=== PATIENT | male | born 1965 | race Caucasian/White ===

== ENCOUNTER 2019-07-19 04:58 | Inpatient (IN) | payer BC ==
[~2019-07-19] VITALS: Ht 165.1 cm; Wt 69.4 kg
[2019-07-19] MEDS ORDERED: ONDANSETRON HCL INJ 2MG/ML 2ML 2 MG/ML VIAL IV STA (05:00)
[2019-07-19] MEDS ORDERED: ASPIRIN 81 MG CHEW TAB PO STA (05:00)
[2019-07-19] MEDS ORDERED: MORPHINE SULFATE INJ 4 MG/ML INJ 1ML IV STA (05:00)
[2019-07-19 05:18] LABS: BASOPHILS # (AUTO) 0.1 (0.0-0.1); BASOPHILS % 1.2 % (0.0-1.0); EOSINOPHILS # (AUTO) 0.4 (0.0-0.4); EOSINOPHILS % 4.5 % (0.0-6.0); HEMATOCRIT 45.6 % (38.2-49.6); HEMOGLOBIN 15.8 g/dL (14.0-18.0); LYMPHOCYTES # (AUTO) 2.1 (1.0-3.2); LYMPHOCYTES % 22.8 % (18.0-39.1); MEAN CORPUSCULAR HGB CONC 34.6 g/dL (31-35); MEAN CORPUSCULAR VOLUME 92.3 fL (81-99); MONOCYTES # (AUTO) 1.2 (0.2-0.8); MONOCYTES % 12.8 % (4.4-11.3); NEUTROPHILS # (AUTO) 5.3 (2.1-6.9); NEUTROPHILS % 58.5 % (38.7-80.0); PLATELET COUNT 326 x10e3/uL (140-360); RED BLOOD COUNT 4.94 x10e6/uL (4.3-5.7); RED CELL DISTRIBUTION WIDTH 13.5 % (11.7-14.4)
[2019-07-19] MEDS ORDERED: ASPIRIN81 MG PO (05:37)
[2019-07-19] MEDS ORDERED: ATORVASTATIN CA80 MG PO (05:37)
[2019-07-19] MEDS ORDERED: ALPRAZOLAM1 MG PO (05:37)
[2019-07-19] MEDS ORDERED: ALBUTEROL0.63 MG/3 INH (05:37)
[2019-07-19] MEDS ORDERED: Metoprolol PO (05:37)
[2019-07-19] MEDS ORDERED: LISINOPRIL2.5 MG PO (05:37)
[2019-07-19 05:39] LABS: ALANINE AMINOTRANSFERASE 33 IU/L (0-55); ALBUMIN 3.9 g/dL (3.5-5.0); ALBUMIN/GLOBULIN RATIO 1.6 (0.8-2.0); ALKALINE PHOSPHATASE 53 IU/L (40-150); ANION GAP 16.1 mmol/L (8-16); BLOOD UREA NITROGEN 11 mg/dL (7-26); BUN/CREATININE RATIO 10 (6-25); CALCIUM 8.5 mg/dL (8.4-10.2); CARBON DIOXIDE 22 mmol/L (22-29); CHLORIDE 109 mmol/L (98-107); CREATINE KINASE 314 IU/L (30-200); CREATININE, SERUM 1.12 mg/dL (0.72-1.25); EST GLOMERULAR FILTRATION RATE > 60 ML/MIN (60-); GLUCOSE 143 mg/dL (74-118); POTASSIUM 4.1 mmol/L (3.5-5.1); SODIUM 143 mmol/L (136-145)
[2019-07-19] MEDS ORDERED: ASPIRIN 81 MG CHEW TAB PO ONE (06:00)
--- NOTE | 2019-07-19 09:07 | NUR ---
having echocardiogram performed at this time
[2019-07-19 09:31] VITALS: BP 133/79
--- NOTE | 2019-07-19 10:00 | NUR ---
Patient here from ER. Patient c/o chest pain 09/14, patient placed on 02 2l NC, glasses on, shelter monitor in place, iv to right ac 20g saline locked. Bed is low and locked, side rails upx2, call light within reach.
[2019-07-19 10:03] VITALS: BP 133/79
--- NOTE | 2019-07-19 10:11 | Diagnostic Imaging Report ---
EXAMINATION: CHEST SINGLE (PORTABLE) INDICATION: Chest pain, shortness of breath COMPARISON: None FINDINGS: LINES/TUBES:EKG leads overlie the chest. LUNGS:The lungs are well-inflated. No focal consolidation or pulmonary edema. PLEURA:No pleural effusion or pneumothorax. MEDIASTINUM:The cardiomediastinal silhouette appears normal in size and shape. BONES/SOFT TISSUES:No acute osseous injury. ABDOMEN:No free air under the diaphragm. IMPRESSION: No focal pneumonia or pulmonary edema. Signed by: Derian Barnhart MD on 07/19/2019 10:08 AM
[2019-07-19] MEDS: MORPHINE SULFATE 2 MG/ML SYR 1ML IV PRN ×2 (10:48→19:33)
[2019-07-19] MEDS: ONDANSETRON HCL INJ 2MG/ML 2ML 2 MG/ML VIAL IV PRN ×2 (10:48→19:33)
[2019-07-19 11:32] VITALS: BP 128/77
[2019-07-19 13:32] LABS: CREATINE KINASE MB 10.8 ng/mL (0-5.0)
--- NOTE | 2019-07-19 14:32 | NUR ---
PAGED DR. ROBERTSON TO NOTIFY OF CARDIAC ENZYME RESULTS. AWAITING CALL BACK.
[2019-07-19] MEDS: NICOTINE 21 MG/EA PATCH TOP SCH (15:03)
[2019-07-19 16:30] VITALS: BP 122/80
--- NOTE | 2019-07-19 17:51 | Consultation ---
DATE OF CONSULTATION: Cardiology Consultation REASON FOR CONSULTATION: Chest pain. HISTORY OF PRESENT ILLNESS: This is a 53-year-old man with a history of prior drug abuse back in 2012, which led to a myocardial infarction due to cocaine overdose, hypertension, hyperlipidemia, who presented to emergency department with two days of worsening chest pain. The patient's pain is intermittent, centrally located without radiation, mild to moderate intensity, mildly relieved with morphine and aspirin, associated with nausea and vomiting. No diaphoresis. No shortness of breath. REVIEW OF SYSTEMS: A 12-point review of system was conducted, is negative as stated above in the HPI. PAST MEDICAL HISTORY: As stated above in the HPI. PAST SURGICAL HISTORY: None recent. PAST FAMILY HISTORY: Noncontributory to current illness. ALLERGIES: NO KNOWN DRUG ALLERGIES. SOCIAL HISTORY: No illicit drug, alcohol or tobacco use. MEDICATIONS: See medication reconciliation form. PHYSICAL EXAMINATION: VITAL SIGNS: Temperature is 97, heart rate is 56, respirations are 18, blood pressure is 128/77, ox saturation 98% on room air. GENERAL: Well appearing, well built, no apparent distress. Alert and oriented x3. HEAD: Normocephalic and atraumatic. EYES: Extraocular muscles are intact. Conjunctivae clear. NECK: No JVD. No bruits. CARDIOVASCULAR: Regular rate and rhythm. LUNGS: Clear to auscultation. ABDOMEN: Soft, nontender, nondistended. EXTREMITIES: No clubbing, cyanosis or edema. VASCULAR: 2+ pulses. SKIN: Warm, dry and intact. NEUROLOGIC: No focal deficits noted. Cranial nerves grossly intact. PSYCHIATRIC: Normal mood and affect. LABORATORY DATA: All laboratory data reviewed. Troponins are within normal limits. BNP is 39. CK is mildly elevated at 314. Chest x-ray shows no acute cardiopulmonary abnormality. A 12-lead electrocardiogram showed normal sinus rhythm with lateral ischemia. 2D echocardiogram showed preserved left ventricular systolic function. IMPRESSION: 1. Precordial pain. 2. Abnormal electrocardiogram. 3. History of myocardial infarction. 4. Hypertension. 5. Hyperlipidemia. RECOMMENDATIONS: Trend the troponins. If rules in, he will need coronary angiogram. If troponins remain normal, he will need a nuclear stress test tomorrow morning. Continue current cardiovascular medications and hyperlipidemia treatment. DO JENN Bland/MAYL /[id number]
[2019-07-19 20:00] VITALS: BP 152/90
[2019-07-19] MEDS ORDERED: TEMAZEPAM 7.5 MG CAP PO SCH (21:00)
[2019-07-19] MEDS: TEMAZEPAM 15 MG CAP PO SCH (21:00)
[2019-07-19 21:20] LABS: CREATINE KINASE MB 11.3 ng/mL (0-5.0)
[2019-07-20] VITALS (10 sets, daily range): BP systolic 115–148; BP diastolic 66–94
[2019-07-20 05:29] LABS: BASOPHILS # (AUTO) 0.1 (0.0-0.1); BASOPHILS % 0.7 % (0.0-1.0); EOSINOPHILS # (AUTO) 0.6 (0.0-0.4); EOSINOPHILS % 5.3 % (0.0-6.0); HEMOGLOBIN 14.9 g/dL (14.0-18.0); LYMPHOCYTES # (AUTO) 3.3 (1.0-3.2); LYMPHOCYTES % 30.5 % (18.0-39.1); MEAN CORPUSCULAR HEMOGLOBIN 31.6 pg (28-32); MEAN CORPUSCULAR HGB CONC 33.1 g/dL (31-35); MEAN CORPUSCULAR VOLUME 95.3 fL (81-99); MONOCYTES % 8.9 % (4.4-11.3); NEUTROPHILS # (AUTO) 5.9 (2.1-6.9); NEUTROPHILS % 54.2 % (38.7-80.0); PLATELET COUNT 286 x10e3/uL (140-360); RED BLOOD COUNT 4.72 x10e6/uL (4.3-5.7); RED CELL DISTRIBUTION WIDTH 13.7 % (11.7-14.4)
[2019-07-20 05:48] LABS: ANION GAP 7.1 mmol/L (8-16); BLOOD UREA NITROGEN 8 mg/dL (7-26); BUN/CREATININE RATIO 9 (6-25); CALCIUM 7.9 mg/dL (8.4-10.2); CARBON DIOXIDE 28 mmol/L (22-29); CHLORIDE 108 mmol/L (98-107); CREATININE, SERUM 0.89 mg/dL (0.72-1.25); EST GLOMERULAR FILTRATION RATE > 60 ML/MIN (60-); GLUCOSE 106 mg/dL (74-118); POTASSIUM 4.1 mmol/L (3.5-5.1); SODIUM 139 mmol/L (136-145)
[2019-07-20 06:04] LABS: CHOL/HDL RATIO 2.9 (3.9-4.7)
[2019-07-20 06:23] LABS: THYROID STIMULATING HORMONE 1.658 uIU/mL (0.350-4.940)
[2019-07-20] MEDS: NICOTINE 21 MG/EA PATCH TOP SCH (08:54)
[2019-07-20] MEDS ORDERED: REGADENOSON 0.4 MG/5 ML SYR IV ONE (09:57)
--- NOTE | 2019-07-20 10:35 | NUR ---
Pt unavailable at this time. Will follow up as able. STONEY FERNANDO Life Manager Spiritual Care Department O: [phone]
[2019-07-20] MEDS: MORPHINE SULFATE 2 MG/ML SYR 1ML IV PRN ×3 (10:40→21:59)
--- NOTE | 2019-07-20 10:40 | NUR ---
MD CALLED TO REQUEST MORPHINE 4 MG GIVE IN STRESS LAB, PATIENT WITH CRUSHING CHEST PAIN 10/, SAME GIVEN, PATIENT THEN RUSHED TO WASTEWATER SUPERVISOR
[2019-07-20] MEDS ORDERED: MIDAZOLAM HCL 2 MG/2 ML VIAL ONE ×2 (10:42→11:10)
[2019-07-20] MEDS ORDERED: HEPARIN SOD (PORCINE) 1000 UNIT/ML 30ML ONE (10:42)
[2019-07-20] MEDS ORDERED: FENTANYL CITRATE/PF 100MCG/2 ML INJ ONE (10:43)
[2019-07-20] MEDS ORDERED: LIDOCAINE HCL 2% LOCAL 20 ML VIAL ONE (10:44)
[2019-07-20] MEDS ORDERED: NITROGLYCERIN/D5W 200 MCG/ML 250 ML ONE (10:45)
[2019-07-20] MEDS ORDERED: SODIUM CHLORIDE 0.9% 1000ML 1,000 ML ONE (10:45)
[2019-07-20] MEDS ORDERED: HEPARIN SOD/SOD CHLORIDE 2,000 ML ONE (10:45)
[2019-07-20] MEDS ORDERED: IOPAMIDOL 370 MG/ML 200 ML INFUS..BTL INJ ONE (10:45)
[2019-07-20] MEDS ORDERED: ASPIRIN 325 MG TAB ONE (11:15)
[2019-07-20] MEDS ORDERED: TICAGRELOR 90 MG TABLET ONE (11:15)
--- NOTE | 2019-07-20 15:25 | Progress Note ---
DATE: Cardiology Progress Note SUBJECTIVE: The patient reported severe chest pain and diaphoresis during his stress test this morning. He then underwent a percutaneous coronary intervention of the right coronary artery, currently feeling well. Denies any chest pain or shortness of breath is ongoing. OBJECTIVE: VITAL SIGNS: Temperature 97.9, heart rate 71, respirations 16, blood pressure is 134/94, and oxygen saturation is 99% on room air. GENERAL: Well appearing, no apparent distress. Alert and orient x3. HEAD: Normocephalic, atraumatic. CARDIOVASCULAR: Regular rate and rhythm. LUNGS: Clear to auscultation. ABDOMEN: Soft, nontender, nondistended. EXTREMITIES: No edema. LABORATORY DATA: Reviewed. Telemetry monitoring revealed no cardiac arrhythmias. IMPRESSION: 1. Yod-CA-refplmlci myocardial infarction. 2. Precordial pain. 3. Abnormal electrocardiogram. 4. Hypertension. 5. Hyperlipidemia. 6. Coronary artery disease. RECOMMENDATIONS: He is currently now status post percutaneous coronary intervention of the right coronary artery. Continue dual antiplatelet therapy and high-dose statins. His echocardiogram showed preserved left ventricular systolic function. Monitor overnight. The patient will be discharged in the morning. Sterling Delgado DO BM/MODL /[id number]
--- NOTE | 2019-07-20 15:40 | Operative Report ---
DATE OF PROCEDURE: 07/20/2019 SURGEON: Sterling Delgado DO PROCEDURES PERFORMED: 1. Conscious sedation, 45 minutes. 2. Selective coronary angiography x2. 3. Left heart catheterization. 4. Percutaneous coronary intervention of the right coronary artery. PREPROCEDURE DIAGNOSIS: [id number]-ugnfmrhdf myocardial infarction. POSTPROCEDURE DIAGNOSIS: Coronary artery disease. ESTIMATED BLOOD LOSS: Less than 20 mL. SPECIMENS REMOVED: None. PROCEDURE IN DETAIL: After informed consent was obtained, the patient is brought to the cardiac catheterization laboratory in a fasting and nonsedated state. Bilateral groins were prepped and draped in the usual sterile fashion. A 2% lidocaine was obtained over the right anterior groin for local anesthesia. The patient received fentanyl and midazolam. His conscious state and his physiologic status were monitored by myself and laborer fryer farm nurse for 45 minutes. Using micropuncture needle, the right common femoral artery was accessed via modified Seldinger technique and a 6-Telugu sheath was placed. Next, diagnostic coronary angiography was performed and 80% to 90% RCA stenosis was found. The patient received systemic heparin for therapeutic anticoagulation. Right coronary artery is cannulated with a JR4 guide. It is crossed with a Runthrough wire. It is pre-dilated with a 2.5 x 12 balloon. The lesion was stented with a 2.75 x 24 Synergy drug-eluting stent with excellent results. The patient tolerated the procedure well, no immediate complications and transferred back to his room in stable condition. Hemostasis was achieved via Mynx device. PROCEDURE FINDINGS: 1. Left main coronary artery is patent without significant disease. 2. Left anterior descending coronary artery is patent with luminal irregularities. 3. Left circumflex coronary artery is a small vessel provides one obtuse marginal vessel. 4. The right coronary artery is a large dominant vessel and provides a large posterolateral branch and the PDA. There is a distal hazy 80% to 90% stenosis. 5. Left ventricular end-diastolic pressure is 22 mmHg with no aortic valve gradient present upon pullback. IMPRESSION: Coronary artery disease. RECOMMENDATIONS: Continue aggressive medical therapy and dual antiplatelet. Sterling Delgado DO BM/MODL /[id number]
[2019-07-20] MEDS: TICAGRELOR 90 MG TABLET PO SCH (17:11)
[2019-07-20] MEDS: METOPROLOL TARTRATE 25 MG TAB PO SCH (17:12)
--- NOTE | 2019-07-20 19:10 | NUR ---
RECEIVED REPORT FROM PREVIOUS NURSE. CALL LIGHT WITHIN REACH. PATIENT IN BED.
[2019-07-20] MEDS ORDERED: ATORVASTATIN 20 MG TAB PO SCH (21:00)
[2019-07-20] MEDS: TEMAZEPAM 15 MG CAP PO SCH (21:39)
[2019-07-20] MEDS: ONDANSETRON HCL INJ 2MG/ML 2ML 2 MG/ML VIAL IV PRN (21:59)
[2019-07-21 00:49] VITALS: BP 121/66
[2019-07-21 04:24] VITALS: BP 112/61
--- NOTE | 2019-07-21 07:10 | NUR ---
GAVE BEDSIDE SHIFT REPORT TO ONCOMING NURSE. CALL LIGHT WITHIN REACH. PATIENT IN BED.
[2019-07-21 07:25] VITALS: BP 128/72
[2019-07-21] MEDS: NICOTINE 21 MG/EA PATCH TOP SCH (09:00)
[2019-07-21] MEDS: TICAGRELOR 90 MG TABLET PO SCH (09:00)
[2019-07-21] MEDS: METOPROLOL TARTRATE 25 MG TAB PO SCH (09:00)
[2019-07-21] MEDS ORDERED: ASPIRIN 81 MG CHEW TAB PO SCH (09:00)
[2019-07-21 09:45] VITALS: BP 128/72
[2019-07-21 11:33] VITALS: BP 126/88
[2019-07-21] MEDS ORDERED: ONDANSETRON HCL 4 MG ORAL DISINTEGRATING TAB PO PRN (11:45)
[2019-07-21] MEDS ORDERED: METOPROLOL SUCC25 MG PO (14:58)
[2019-07-21] MEDS ORDERED: LIPITOR20 MG PO (14:58)
[2019-07-21] MEDS ORDERED: BRILINTA90 MG PEG (15:00)
[2019-07-21 15:19] VITALS: BP 141/88
--- NOTE | 2019-07-21 16:12 | NUR ---
SPOKE WITH MD ROBERTSON, OKAY TO DC FROM HIS STANDPOINT, DISCHARGE INSTRUCTIONS REVIEWED WITH PT, VERBALIZED UNDERSTANDING, WHEELED OFF UNIT VIA WC FOR DISCHARGE, NO CHANGE IN CONDITION
--- NOTE | 2019-07-26 12:22 | Discharge Summary ---
FINAL DIAGNOSIS: Dfc-WX-wtddlyyex myocardial infarction. SECONDARY DIAGNOSES: 1. Hypertension. 2. Dyslipidemia. 3. Tobacco abuse. CONSULTANTS: Dr. Delgado, Cardiology. PROCEDURES/STUDIES PERFORMED: 1. Echocardiogram, which was unremarkable. 2. Left heart catheterization with stent placement to RCA. HISTORY: Per H and P. HOSPITAL COURSE: The patient was admitted. The patient's troponin went up. He does have [id number] NH. The patient underwent cardiac cath with stent placed in the right coronary artery. The patient understand that it is very important for him to continue take his aspirin and Brilinta as prescribed. The patient will continue to work on stopping smoking. The patient was seen and examined today. It took 32 minutes total to discharge this patient. CONDITION ON DISCHARGE: Stable. DISCHARGE MEDICATIONS: Please see medication reconciliation form. MD TATIANA Mead/ADIA /[id number]
--- NOTE | 2019-07-28 17:32 | Myoview Stress Test ---
DATE OF STUDY: 07/19/2019 12:57:00 Stress Test - Treadmill ONLY STUDY PERFORMED: Nuclear stress report. PROCEDURE TITLE: Rest single isotope SPECT imaging with pharmacologic stress. INDICATION: Chest pain. PROCEDURE IN DETAIL: Pharmacologic stress testing was performed with regadenoson per protocol. The heart rate was 69 beats per minute at rest and increased to 103 beats per minute during the regadenoson infusion. The resting blood pressure was 138/79 mmHg and decreased to 130/79 mmHg, which is a normal response. The resting electrocardiogram demonstrated normal sinus rhythm. There were no ST T-wave changes suggestive of myocardial ischemia. The patient became symptomatic with 9/10 chest pain associated with diaphoresis during stress. Blood pressure increased to 198/101 while patient was having chest pain. The patient was given 0.4 mg of sublingual nitroglycerin and 4 mg of morphine and was emergently taken to the cardiac catheterization laboratory. Myocardial perfusion imaging was performed at rest following the injection of 11 millicurie of tetrofosmin. At peak pharmacologic effect, the patient was injected with 32.2 millicurie of tetrofosmin. Stress images were not obtained as the patient was taken to the cardiac catheterization laboratory due to chest pain prior to completion of procedure. FINDINGS: The overall quality of study is fair. Left ventricular cavity is noted to be normal size on the rest study. SPECT images demonstrate a small moderate inferior perfusion defect in the inferior wall. In addition, there is a small moderately severe perfusion defect in the distal anterolateral wall. CONCLUSIONS: Myocardial perfusion imaging is abnormal at rest. No stress images were obtained. Gated SPECT imaging was not performed. Georgiana Mosqueda MD ABS/MODL /[id number] DAVID
== END 2019-07-21 16:13 | disposition home or self-care (01) | DRG 247 ==
LOC: ER 04:58 → ERHOLD 06:14 → MED/SURG 09:49 → OBSVTOIN 07-20 13:02
PROVIDERS: ADMIT Internal Medicine; ATTEND Internal Medicine
PROC: 027034Z Dilation of Coronary Artery, One Artery with Drug-eluting Intraluminal Device, Percutaneous Approach (ICD-10-PCS; principal; 2019-07-20)
PROC: 4A023N7 Measurement of Cardiac Sampling and Pressure, Left Heart, Percutaneous Approach (ICD-10-PCS; 2019-07-20)
PROC: B2111ZZ Fluoroscopy of Multiple Coronary Arteries using Low Osmolar Contrast (ICD-10-PCS; 2019-07-20)
PROC: B2151ZZ Fluoroscopy of Left Heart using Low Osmolar Contrast (ICD-10-PCS; 2019-07-20)
DX: I21.4 Non-ST elevation (NSTEMI) myocardial infarction (principal); Z86.73 Personal history of transient ischemic attack (TIA), and cerebral infarction without residual deficits; I25.110 Atherosclerotic heart disease of native coronary artery with unstable angina pectoris; I25.2 Old myocardial infarction; G47.00 Insomnia, unspecified; F17.200 Nicotine dependence, unspecified, uncomplicated; I10 Essential (primary) hypertension; E78.5 Hyperlipidemia, unspecified
CPT/HCPCS: 36415; 71045; 78452; 80048; 80053; 80061; 82550; 82553; 83880; 84443; 84484; 85025; 85379; 92928; 93005; 93017; 93306; 93458; 99152; 99153; 99284; A9502; C1725; C1760; C1874; G0378; J1644; J2001; J2250; J2270; J2405; J3010; J7030; Q9967